=== PATIENT | female | born 1995 | race Caucasian/White ===

== ENCOUNTER 2019-01-04 09:58 | Inpatient (IN) | payer MEDICAID ==
[2019-01-04] MEDS ORDERED: Sodium Chloride 0.9% 10 ML Syringe FLUSH PRN (12:38)
[2019-01-04] MEDS ORDERED: Acetaminophen 325 MG Tab PO PRN (12:38)
[2019-01-04] MEDS ORDERED: Ondansetron 4 MG/2 ML SDV IV PRN (12:38)
[2019-01-04] MEDS ORDERED: Lidocaine 1% 50 ML MDV ONE (16:53)
--- NOTE | 2019-01-04 17:28 | PCM.LDHP ---
L&D History of Present Illness - General Date of Service: 01/04/19 Admit Problem/Dx: Patient Status Order with Admit Dx/Problem 01/04/19 12:38 Patient Status [ADT] Routine Admission Diagnosis/Problem Admission Diagnosis/Problem Source of Information: Patient History Limitations: Reports: No Limitations - Related Data Allergies/Adverse Reactions: Allergies Allergy/AdvReac Type Severity Reaction Status Date / Time amoxicillin [Amoxicillin] Allergy Cannot Verified 11/19/18 13:14 Remember cefaclor [Cefaclor] Allergy Rash Verified 11/19/18 13:14 Home Medications: Home Meds Vit 90/Iron Fum/Folic [ Formula] 1 each PO DAILY 08/21/13 [ History] Omeprazole 20 mg PO DAILY PRN 01/05/15 [History] Past Medical History - Past Health History Medical/Surgical History: Denies Medical/Surgical History [employer] History: Reports: Musculoskeletal History: Reports: Other (See Below) Other Musculoskeletal History: taylors bunion on left foot - Past Surgical History Musculoskeletal Surgical History: Reports: Other (See Below) Other Musculoskeletal Surgeries/Procedures:: taylors bunion repair left foot-[address] Social & Family History - Family History Family Medical History: Noncontributory - Tobacco Use Smoking Status *Q: Never Smoker - Caffeine Use Caffeine Use: Reports: None - Recreational Drug Use Recreational Drug Use: No H&P Review of Systems - Review of Systems: Review Of Systems: See Below General: Reports: No Symptoms HEENT: Reports: No Symptoms Pulmonary: Reports: No Symptoms Cardiovascular: Reports: No Symptoms Gastrointestinal: Reports: No Symptoms Genitourinary: Reports: No Symptoms Musculoskeletal: Reports: No Symptoms Skin: Reports: No Symptoms Psychiatric: Reports: No Symptoms Neurological: Reports: No Symptoms Hematologic/Lymphatic: Reports: No Symptoms Immunologic: Reports: No Symptoms L&D Exam - Exam Exam: See Below - Vital Signs Vital Signs: Last Vital Signs Temp 36.6 C 01/04/19 15:20 Pulse 96 01/04/19 15:22 Resp 16 01/04/19 15:20 BP 120/62 01/04/19 15:22 Pulse Ox 94 L 01/04/19 15:20 Weight: 69.4 kg - OB Specific Contraction Duration (sec): 50-120 Contraction Frequency (min): 1.5-3 Contraction Intensity: Moderate Movement: Active Heart Tones: Present Heart Rate (FHR) Variability: Moderate (6-25 bmp) Presentation: Vertex - Spence Score Spence Score Cervix Position: Anterior Spence Score Consistency: Soft Spence Score Effacement: >80% Spence Score Dilation: 3-4 cm Spence Score 's Station: -1 ,0 Spence Score Total: 11 - Exam General: Alert, Oriented HEENT: PERRLA, Conjunctiva Clear, EACs Clear, EOMI, Hearing Intact, Mucosa Moist & [place], Nares Patent, Normal Nasal Septum, Posterior Pharynx Clear, TMs Clear Neck: Supple, Trachea Midline Lungs: Clear to Auscultation, Normal Respiratory Effort Cardiovascular: Regular Rate, Regular Rhythm GI/Abdominal Exam: Normal Bowel Sounds, Soft, Non-Tender, No Organomegaly, No Distention, No Abnormal Bruit, No Mass, Pelvis Stable Rectal Exam: Normal Exam, Normal Rectal Tone Genitourinary: Normal external exam, Normal bimanual exam, Normal speculum exam Back Exam: Normal Inspection, Full Range of Motion Extremities: Normal Inspection, Normal Range of Motion, Non-Tender, No Pedal Edema, Normal Capillary Refill Skin: Warm, Dry, Intact Neurological: Cranial Nerves Intact, Reflexes Equal Bilateral Psychiatric: Alert, Normal Affect, Normal Mood - Patient Data Lab Results Last 24 hrs: Laboratory Results - last 24 hr 01/04/19 01/04/19 01/04/19 Range/Units 11:08 12:38 12:56 WBC 17.0 H (4.5-11.0) K/uL RBC 3.86 (3.30-5.50) M/uL Hgb 11.8 L (12.0-15.0) g/dL Hct 36.1 (36.0-48.0) % MCV 94 (80-98) fL MCH 31 (27-31) pg MCHC 33 (32-36) % Plt Count 192 (150-400) K/uL Neut % (Auto) 84 H (36-66) % Lymph % (Auto) 8 L (24-44) % [place] % (Auto) 7 H (2-6) % Eos % (Auto) 1 L (2-4) % Baso % (Auto) 0 (0-1) % Urine Color Yellow Urine Appearance Slightly cloudy Urine pH 7.0 (4.5-8.0) Ur Specific [place] 1.015 (1.008-1.030) Urine Protein Trace (NEGATIVE) mg/dL Urine Glucose (UA) Normal (NEGATIVE) mg/dL Urine Ketones Negative (NEGATIVE) mg/dL Urine Occult Blood Moderate (NEGATIVE) Urine Nitrite Negative (NEGATIVE) Urine Bilirubin Negative (NEGATIVE) Urine Urobilinogen Normal (NORMAL) mg/dL Ur Leukocyte Esterase Small (NEGATIVE) Urine RBC 5-10 H (0-5) Urine WBC 20-30 H (0-5) Ur Epithelial Cells Moderate Amorphous Sediment Not seen Urine Bacteria Many Urine Mucus Moderate Urine Opiates Screen Negative (NEGATIVE) Ur Oxycodone Screen Negative (NEGATIVE) Urine Methadone Screen Negative (NEGATIVE) Ur Propoxyphene Screen Negative (NEGATIVE) Ur Barbiturates Screen Negative (NEGATIVE) Ur Tricyclics Screen Negative (NEGATIVE) Ur Phencyclidine Scrn Negative (NEGATIVE) Ur Amphetamine Screen Negative (NEGATIVE) U Methamphetamines Scrn Negative (NEGATIVE) Urine MDMA Screen Negative (NEGATIVE) U Benzodiazepines Scrn Negative (NEGATIVE) U Cocaine Metab Screen Negative (NEGATIVE) U Marijuana (THC) Screen Negative (NEGATIVE) Result Diagrams: 01/04/19 12:56 - Problem List (1) SNOMED Code(s): 36037997 ICD Code: Z34.90 - ENCNTR FOR SUPRVSN OF NORMAL , UNSP, UNSP TRIMESTER Status: Acute Current Visit: Yes Qualifiers: Weeks of gestation: 39 weeks Qualified Code(s): Z3A.39 - 39 weeks gestation of (2) Labor established SNOMED Code(s): 59570936 ICD Code: OBA1451 - Status: Acute Current Visit: Yes Problem List Initiated/Reviewed/Updated: Yes Orders Last 24hrs: Active Orders 24 hr Category Date Time Status Patient Status [ADT] Routine ADT 01/04/19 12:38 Active Ambulate [RC] PER UNIT ROUTINE Care 01/04/19 12:38 Active Communication Order [RC] ASDIRECTED Care 01/04/19 12:38 Active Communication Order [RC] Per Unit Routine Care 01/04/19 16:22 Active Communication Order [RC] Per Unit Routine Care 01/04/19 16:22 Active Communication Order [RC] Per Unit Routine Care 01/04/19 16:22 Active Communication Order [RC] Per Unit Routine Care 01/04/19 16:22 Active Non Stress Test [RC] Click to Edit Care 01/04/19 12:38 Active May Shower [RC] ASDIRECTED Care 01/04/19 12:38 Active Nitrous Oxide Delivery [RC] ASDIRECTED Care 01/04/19 16:22 Active Notify Provider Vital Signs [RC] PRN Care 01/04/19 12:38 Active Notify Provider [RC] PRN Care 01/04/19 12:38 Active OB Check [OM.PC] Click to Edit Care 01/04/19 10:10 Ordered Oxygen Therapy [RC] ASDIRECTED Care 01/04/19 16:22 Active Pulse Oximetry [RC] ASDIRECTED Care 01/04/19 16:22 Active Up ad Jerrica [RC] ASDIRECTED Care 01/04/19 12:38 Active VTE/DVT Education [RC] Click to Edit Care 01/04/19 12:39 Active Verify Patient Consent Obtain [RC] ASDIRECTED Care 01/04/19 16:22 Active Vital Signs [RC] PER UNIT ROUTINE Care 01/04/19 12:38 Active Vital Signs [RC] PER UNIT ROUTINE Care 01/04/19 16:22 Active Regular Diet [DIET] Diet 01/04/19 Lunch Active Acetaminophen [Tylenol] Med 01/04/19 12:38 Active 650 mg PO Q4H PRN Ondansetron [Zofran] Med 01/04/19 12:38 Active 4 mg IV Q4H PRN Oxytocin/Normal Saline [Pitocin in NS 20 Units/1,000 ML Med 01/04/19 16:30 Active ] 20 unit in 1,000 ml IV TITRATE Sodium Chloride 0.9% [Saline Flush] Med 01/04/19 12:38 Active 10 ml FLUSH ASDIRECTED PRN DVT/VTE Prophylaxis Reflex [OM.PC] Routine Oth 01/04/19 12:38 Ordered Medication Discontinuation Instructions [OM.PC] Routine Oth 01/04/19 16:22 Ordered Saline Lock Insert [OM.PC] Routine Oth 01/04/19 12:38 Ordered Resuscitation Status Routine Resus Stat 01/04/19 12:38 Ordered Medication Orders Acetaminophen (Tylenol) 650 mg PO Q4H PRN PRN Reason: Pain (Mild 1-3) and fever Oxytocin/Sodium Chloride (Pitocin In Ns 20 Units/1,000 Ml) 20 unit in 1,000 mls @ 999 mls/hr IV TITRATE JENNIFER; Protocol Ondansetron HCl (Zofran) 4 mg IV Q4H PRN PRN Reason: Nausea/Vomiting Sodium Chloride (Saline Flush) 10 ml FLUSH ASDIRECTED PRN PRN Reason: Keep Vein Open Assessment/Plan Comment:: 01/04/2019 23 yo at 39 4/7 gestation weeks came in in active labor. She states that her contractions got more intense during the night and she has had bloody show. SVE-4-5/90/0 FHTs category one Contractions every 1.5-6 minutes Labs-O negative, Hep B neg, HIV neg, Hep C neg, RPR nonreactive, Rubella Immune , GBS negative Plan- Will admit patient Monitor labor Monitor FHTs intermittently Patient may be up ad jerrica Patient may tub bath or shower Patient may eat regular diet Pain management per patient request Plan and anticipate a vaginal delivery
[2019-01-04] MEDS ORDERED: Benzocaine 20% Top Spray 56 GM Bottle TOP PRN (17:30)
[2019-01-04] MEDS ORDERED: Witch Hazel Medicated Pads 100/Jar TOP PRN (17:30)
[2019-01-04] MEDS ORDERED: Lanolin 100% Cream 40 GM Tube TOP PRN (17:30)
[2019-01-04] MEDS ORDERED: Ibuprofen 200 MG Tab, 24 Tab Bulk Bottle PO PRN (17:32)
[2019-01-04] MEDS ORDERED: Acetaminophen 325 MG Tab, 50 Tab Bulk Bottle PO PRN (17:32)
--- NOTE | 2019-01-04 18:20 | PCM.DEL ---
L & D Note - General Info Date of Service: 01/04/19 - Delivery Note Labor: Spontaneous Delivery Outcome: Livebirth Delivery Method: Spontaneous Vaginal Delivery-Single Delivery Mode: Spontaneous Presentation: Left Occiput Anterior (ALEXEY) Nuchal Cord: None Anesthesia Type: Nitrous Oxide Episiotomy Type: None Laceration: None Placenta: Intact, Spontaneous Cord: 3 Vessels Estimated Blood Loss: 250 Resuscitation Needed: No [place]: Bulb Syringe, [place] Used, Warmer Used Provider: Mile Schmitt Score 1 min: 9 Score 5 min: 9 Second Stage Interventions: Reports: Encouragement Given, Pushing Effectively, Pushing, McRobert's Position Delivery Comments (Free Text/Narrative):: 01/04/2019 23 yo delivered a viable male infant at 1703 on 01/04/2019 over and intact perineum in the ALEXEY position. APGARS-9/9, weight-8lbs, length-20.75inches, infant was delivered, placed on prewarmed blanket on mother abdomen, dried, stimulated and cried spontaneously and began to pink in color. No nuchal cord noted, three vessel cord, cord then double clamped and cut by father of infant. Placenta came spontaneous and intact. EBL-250ml. No lacerations noted of vagina, perineum, rectum, or cervix. Infant now skin to skin on mother and both in stable condition in labor and delivery room. 1st [id number] 2nd [id number] 3rd [id number] - General Info Date of Service: 01/04/19 Functional Status: Reports: Pain Controlled - Review of Systems General: Reports: No Symptoms HEENT: Reports: No Symptoms Pulmonary: Reports: No Symptoms Cardiovascular: Reports: No Symptoms Gastrointestinal: Reports: No Symptoms Genitourinary: Reports: No Symptoms Musculoskeletal: Reports: No Symptoms Skin: Reports: No Symptoms Neurological: Reports: No Symptoms Psychiatric: Reports: No Symptoms - Patient Data Vitals - Most Recent: Last Vital Signs Temp 36.6 C 01/04/19 15:20 Pulse 96 01/04/19 15:22 Resp 16 01/04/19 15:20 BP 120/62 01/04/19 15:22 Pulse Ox 94 L 01/04/19 15:20 Weight - Most Recent: 69.4 kg Lab Results Last 24 Hours: Laboratory Results - last 24 hr 01/04/19 01/04/19 01/04/19 Range/Units 11:08 12:38 12:56 WBC 17.0 H (4.5-11.0) K/uL RBC 3.86 (3.30-5.50) M/uL Hgb 11.8 L (12.0-15.0) g/dL Hct 36.1 (36.0-48.0) % MCV 94 (80-98) fL MCH 31 (27-31) pg MCHC 33 (32-36) % Plt Count 192 (150-400) K/uL Neut % (Auto) 84 H (36-66) % Lymph % (Auto) 8 L (24-44) % [place] % (Auto) 7 H (2-6) % Eos % (Auto) 1 L (2-4) % Baso % (Auto) 0 (0-1) % Urine Color Yellow Urine Appearance Slightly cloudy Urine pH 7.0 (4.5-8.0) Ur Specific [place] 1.015 (1.008-1.030) Urine Protein Trace (NEGATIVE) mg/dL Urine Glucose (UA) Normal (NEGATIVE) mg/dL Urine Ketones Negative (NEGATIVE) mg/dL Urine Occult Blood Moderate (NEGATIVE) Urine Nitrite Negative (NEGATIVE) Urine Bilirubin Negative (NEGATIVE) Urine Urobilinogen Normal (NORMAL) mg/dL Ur Leukocyte Esterase Small (NEGATIVE) Urine RBC 5-10 H (0-5) Urine WBC 20-30 H (0-5) Ur Epithelial Cells Moderate Amorphous Sediment Not seen Urine Bacteria Many Urine Mucus Moderate Urine Opiates Screen Negative (NEGATIVE) Ur Oxycodone Screen Negative (NEGATIVE) Urine Methadone Screen Negative (NEGATIVE) Ur Propoxyphene Screen Negative (NEGATIVE) Ur Barbiturates Screen Negative (NEGATIVE) Ur Tricyclics Screen Negative (NEGATIVE) Ur Phencyclidine Scrn Negative (NEGATIVE) Ur Amphetamine Screen Negative (NEGATIVE) U Methamphetamines Scrn Negative (NEGATIVE) Urine MDMA Screen Negative (NEGATIVE) U Benzodiazepines Scrn Negative (NEGATIVE) U Cocaine Metab Screen Negative (NEGATIVE) U Marijuana (THC) Screen Negative (NEGATIVE) Med Orders - Current: Current Medications Acetaminophen (Tylenol) 650 mg PO Q4H PRN PRN Reason: Pain (Mild 1-3) and fever Acetaminophen (Tylenol Bulk Bottle) 325 - 650 mg PO Q4H PRN PRN Reason: Pain Benzocaine ([id number] 20% [place]) 0 gm TOP Q4H PRN PRN Reason: Perineal Comfort Measure Emollient Ointment (Lansinoh Hpa) 0 gm TOP ASDIRECTED PRN PRN Reason: Sore Nipples Oxytocin/Sodium Chloride (Pitocin In Ns 20 Units/1,000 Ml) 20 unit in 1,000 mls @ 999 mls/hr IV TITRATE JENNIFER; Protocol Ibuprofen (Motrin Bulk Bottle) 600 mg PO Q6H PRN PRN Reason: Pain Ondansetron HCl (Zofran) 4 mg IV Q4H PRN PRN Reason: Nausea/Vomiting Sodium Chloride (Saline Flush) 10 ml FLUSH ASDIRECTED PRN PRN Reason: Keep Vein Open Witch Stefanie (Tucks) 1 pad TOP ASDIRECTED PRN PRN Reason: Hemorrhoids Discontinued Medications Oxytocin/Sodium Chloride (Pitocin In Ns 20 Units/1,000 Ml) 20 unit in 1,000 mls @ 2,997 mls/hr IV ONETIME ONE; Protocol Stop: 01/04/19 17:52 Lidocaine HCl (Xylocaine 1%) Confirm Administered Dose 100 ml .ROUTE .K-MED ONE Stop: 01/04/19 16:54 - Exam General: Alert, Oriented, Cooperative HEENT: Pupils Equal, Pupils Reactive, EOMI, Mucous Membr. Moist/[place] Neck: Supple Lungs: Clear to Auscultation, Normal Respiratory Effort Cardiovascular: Regular Rate, Regular Rhythm GI/Abdominal Exam: Normal Bowel Sounds, Soft, Non-Tender, No Organomegaly, No Distention, No Abnormal Bruit, No Mass, Pelvis Stable (Female) Exam: Normal External Exam, Normal Bimanual Exam, Enlarged Uterus, Vaginal Bleeding Back Exam: Normal Inspection, Full Range of Motion Extremities: Normal Inspection, Normal Range of Motion, Non-Tender, No Pedal Edema, Normal Capillary Refill Skin: Warm, Dry, Intact Wound/Incisions: Healing Well Neurological: No New Focal Deficit Psy/Mental Status: Alert, Normal Affect, Normal Mood - Problem List & Annotations (1) SNOMED Code(s): 90884408 Code(s): Z34.90 - ENCNTR FOR SUPRVSN OF NORMAL , UNSP, UNSP TRIMESTER Status: Acute Current Visit: Yes Qualifiers: Weeks of gestation: 39 weeks Qualified Code(s): Z3A.39 - 39 weeks gestation of (2) Labor established SNOMED Code(s): 65432496 Code(s): DWU8345 - Status: Acute Current Visit: Yes (3) Vaginal delivery SNOMED Code(s): 279508009 Code(s): O80 - ENCOUNTER FOR FULL-TERM UNCOMPLICATED DELIVERY Status: Acute Current Visit: No - Problem List Review Problem List Initiated/Reviewed/Updated: Yes - My Orders Last 24 Hours: My Active Orders 01/04/19 12:38 Patient Status [ADT] Routine Ambulate [RC] PER UNIT ROUTINE Communication Order [RC] ASDIRECTED Non Stress Test [RC] Click to Edit May Shower [RC] ASDIRECTED Notify Provider Vital Signs [RC] PRN Notify Provider [RC] PRN Up ad Valentina [RC] ASDIRECTED Vital Signs [RC] PER UNIT ROUTINE Acetaminophen [Tylenol] 650 mg PO Q4H PRN Ondansetron [Zofran] 4 mg IV Q4H PRN Sodium Chloride 0.9% [Saline Flush] 10 ml FLUSH ASDIRECTED PRN DVT/VTE Prophylaxis Reflex [OM.PC] Routine Saline Lock Insert [OM.PC] Routine Resuscitation Status Routine 01/04/19 12:39 VTE/DVT Education [RC] Click to Edit 01/04/19 16:22 Communication Order [RC] Per Unit Routine Communication Order [RC] Per Unit Routine Communication Order [RC] Per Unit Routine Communication Order [RC] Per Unit Routine Nitrous Oxide Delivery [RC] ASDIRECTED Oxygen Therapy [RC] ASDIRECTED Pulse Oximetry [RC] ASDIRECTED Verify Patient Consent Obtain [RC] ASDIRECTED Vital Signs [RC] PER UNIT ROUTINE Medication Discontinuation Instructions [OM.PC] Routine 01/04/19 16:30 Oxytocin/Normal Saline [Pitocin in NS 20 Units/1,000 ML] 20 unit in 1,000 ml IV TITRATE 01/04/19 17:30 Patient Status [ADT] Routine Vital Signs [RC] PFP Benzocaine [Tuub-G-Onbhavd 20% [place]] See Dose Instructions TOP Q4H PRN Lanolin [Lansinoh HPA] 0 gm TOP ASDIRECTED PRN Witch Stefanie [Tucks] 1 pad TOP ASDIRECTED PRN Assess Lochia [WOMSER] Per Unit Routine Assess Uterine Involution [WOMSER] Per Unit Routine 01/04/19 17:32 Acetaminophen [Tylenol Bulk Bottle] 325 - 650 mg PO Q4H PRN Ibuprofen [Motrin Bulk Bottle] 600 mg PO Q6H PRN 01/04/19 Lunch Regular Diet [DIET] 01/05/19 06:00 CBC WITH AUTO DIFF [HEME] Routine - Assessment Assessment:: 01/04/2019 without complications - Plan Plan:: 01/04/2019 23 yo at 39 4/7 gestation weeks came in in active labor. She states that her contractions got more intense during the night and she has had bloody show. SVE-4-5/0 FHTs category one Contractions every 1.5-6 minutes Labs-O negative, Hep B neg, HIV neg, Hep C neg, RPR nonreactive, Rubella Immune , GBS negative Plan- Will admit patient Monitor labor Monitor FHTs intermittently Patient may be up ad valentina Patient may tub bath or shower Patient may eat regular diet Pain management per patient request Plan and anticipate a vaginal delivery 01/04/2019 Routine cares Encourage and support Plan discharge in 24-48 hours
[2019-01-05 07:59] VITALS: BP 108/66
--- NOTE | 2019-01-05 08:34 | PCM.PNPP ---
- General Info Date of Service: 01/05/19 Functional Status: Reports: Pain Controlled - Review of Systems General: Reports: No Symptoms HEENT: Reports: No Symptoms Pulmonary: Reports: No Symptoms Cardiovascular: Reports: No Symptoms Gastrointestinal: Reports: No Symptoms Genitourinary: Reports: No Symptoms Musculoskeletal: Reports: No Symptoms Skin: Reports: No Symptoms Neurological: Reports: No Symptoms Psychiatric: Reports: No Symptoms - General Info Date of Service: 01/05/19 - Patient Data Vital Signs - Most Recent: Last Vital Signs Temp 35.9 C 01/05/19 07:30 Pulse 93 01/05/19 07:30 Resp 16 01/05/19 07:30 BP 108/66 01/05/19 07:30 Pulse Ox 98 01/05/19 07:30 Weight - Most Recent: 69.4 kg I&O - Last 24 Hours: Intake & Output 01/04/19 01/05/19 01/05/19 22:59 06:59 14:59 Intake Total 2021 Balance 2021 Lab Results - Last 24 Hours: Laboratory Results - last 24 hr 01/04/19 01/04/19 01/04/19 Range/Units 11:08 12:38 12:56 WBC 17.0 H (4.5-11.0) K/uL RBC 3.86 (3.30-5.50) M/uL Hgb 11.8 L (12.0-15.0) g/dL Hct 36.1 (36.0-48.0) % MCV 94 (80-98) fL MCH 31 (27-31) pg MCHC 33 (32-36) % Plt Count 192 (150-400) K/uL Neut % (Auto) 84 H (36-66) % Lymph % (Auto) 8 L (24-44) % Potter % (Auto) 7 H (2-6) % Eos % (Auto) 1 L (2-4) % Baso % (Auto) 0 (0-1) % Urine Color Yellow Urine Appearance Slightly cloudy Urine pH 7.0 (4.5-8.0) Ur Specific [place] 1.015 (1.008-1.030) Urine Protein Trace (NEGATIVE) mg/dL Urine Glucose (UA) Normal (NEGATIVE) mg/dL Urine Ketones Negative (NEGATIVE) mg/dL Urine Occult Blood Moderate (NEGATIVE) Urine Nitrite Negative (NEGATIVE) Urine Bilirubin Negative (NEGATIVE) Urine Urobilinogen Normal (NORMAL) mg/dL Ur Leukocyte Esterase Small (NEGATIVE) Urine RBC 5-10 H (0-5) Urine WBC 20-30 H (0-5) Ur Epithelial Cells Moderate Amorphous Sediment Not seen Urine Bacteria Many Urine Mucus Moderate Urine Opiates Screen Negative (NEGATIVE) Ur Oxycodone Screen Negative (NEGATIVE) Urine Methadone Screen Negative (NEGATIVE) Ur Propoxyphene Screen Negative (NEGATIVE) Ur Barbiturates Screen Negative (NEGATIVE) Ur Tricyclics Screen Negative (NEGATIVE) Ur Phencyclidine Scrn Negative (NEGATIVE) Ur Amphetamine Screen Negative (NEGATIVE) U Methamphetamines Scrn Negative (NEGATIVE) Urine MDMA Screen Negative (NEGATIVE) U Benzodiazepines Scrn Negative (NEGATIVE) U Cocaine Metab Screen Negative (NEGATIVE) U Marijuana (THC) Screen Negative (NEGATIVE) Blood Type Gel Antibody Screen Rhogam Indicated 01/04/19 01/05/19 Range/Units 20:21 04:42 WBC 17.4 H (4.5-11.0) K/uL RBC 3.69 (3.30-5.50) M/uL Hgb 11.3 L (12.0-15.0) g/dL Hct 34.4 L (36.0-48.0) % MCV 93 (80-98) fL MCH 31 (27-31) pg MCHC 33 (32-36) % Plt Count 184 (150-400) K/uL Neut % (Auto) 75 H (36-66) % Lymph % (Auto) 15 L (24-44) % Potter % (Auto) 9 H (2-6) % Eos % (Auto) 2 (2-4) % Baso % (Auto) 0 (0-1) % Urine Color Urine Appearance Urine pH (4.5-8.0) Ur Specific [place] (1.008-1.030) Urine Protein (NEGATIVE) mg/dL Urine Glucose (UA) (NEGATIVE) mg/dL Urine Ketones (NEGATIVE) mg/dL Urine Occult Blood (NEGATIVE) Urine Nitrite (NEGATIVE) Urine Bilirubin (NEGATIVE) Urine Urobilinogen (NORMAL) mg/dL Ur Leukocyte Esterase (NEGATIVE) Urine RBC (0-5) Urine WBC (0-5) Ur Epithelial Cells Amorphous Sediment Urine Bacteria Urine Mucus Urine Opiates Screen (NEGATIVE) Ur Oxycodone Screen (NEGATIVE) Urine Methadone Screen (NEGATIVE) Ur Propoxyphene Screen (NEGATIVE) Ur Barbiturates Screen (NEGATIVE) Ur Tricyclics Screen (NEGATIVE) Ur Phencyclidine Scrn (NEGATIVE) Ur Amphetamine Screen (NEGATIVE) U Methamphetamines Scrn (NEGATIVE) Urine MDMA Screen (NEGATIVE) U Benzodiazepines Scrn (NEGATIVE) U Cocaine Metab Screen (NEGATIVE) U Marijuana (THC) Screen (NEGATIVE) Blood Type O NEGATIVE Gel Antibody Screen Positive A* Rhogam Indicated Yes, baby rh pos Med Orders - Current: Current Medications Acetaminophen (Tylenol) 650 mg PO Q4H PRN PRN Reason: Pain (Mild 1-3) and fever Acetaminophen (Tylenol Bulk Bottle) 325 - 650 mg PO Q4H PRN PRN Reason: Pain Last Admin: 01/04/19 22:19 Dose: 650 mg Benzocaine (Kiiu-Z-Xrifusw 20% [place]) 0 gm TOP Q4H PRN PRN Reason: Perineal Comfort Measure Emollient Ointment (Lansinoh Hpa) 0 gm TOP ASDIRECTED PRN PRN Reason: Sore Nipples Oxytocin/Sodium Chloride (Pitocin In Ns 20 Units/1,000 Ml) 20 unit in 1,000 mls @ 999 mls/hr IV TITRATE JENNIFER; Protocol Ibuprofen (Motrin Bulk Bottle) 600 mg PO Q6H PRN PRN Reason: Pain Last Admin: 01/04/19 20:06 Dose: 600 mg Ondansetron HCl (Zofran) 4 mg IV Q4H PRN PRN Reason: Nausea/Vomiting Sodium Chloride (Saline Flush) 10 ml FLUSH ASDIRECTED PRN PRN Reason: Keep Vein Open Witpadmini Watts (Tucks) 1 pad TOP ASDIRECTED PRN PRN Reason: Hemorrhoids Discontinued Medications Oxytocin/Sodium Chloride (Pitocin In Ns 20 Units/1,000 Ml) 20 unit in 1,000 mls @ 2,997 mls/hr IV ONETIME ONE; Protocol Stop: 01/04/19 17:52 Last Admin: 01/04/19 17:15 Dose: 999 munits/min, 2,997 mls/hr Lidocaine HCl (Xylocaine 1%) Confirm Administered Dose 100 ml .ROUTE .STK-MED ONE Stop: 01/04/19 16:54 Last Admin: 01/04/19 21:20 Dose: Not Given - Infant Interaction Infant Disposition, : at Bedside Infant Interaction: Holding Feeding: Breastfed Infant; Nursed Well Support Person: - Recovery Exam Fundal Tone: Firm Fundal Level: 1 Fingerbreadths Below Umbilicus Fundal Placement: Midline Lochia Amount: Moderate Lochia Color: Rubra/Red Perineum Description: Intact, Minimal Bruising/Swelling Episiotomy/Laceration: None Bladder Status: Voiding - Exam General: Alert, Oriented HEENT: Pupils Equal Neck: Supple Lungs: Clear to Auscultation, Normal Respiratory Effort Cardiovascular: Regular Rate, Regular Rhythm GI/Abdominal Exam: Normal Bowel Sounds, Soft, Non-Tender, No Organomegaly, No Distention, No Abnormal Bruit, No Mass, Pelvis Stable Extremities: Normal Inspection, Normal Range of Motion, Non-Tender, No Pedal Edema, Normal Capillary Refill Skin: Warm, Dry, Intact Neurological: No New Focal Deficit Psy/Mental Status: Alert, Normal Affect, Normal Mood - Problem List & Annotations (1) SNOMED Code(s): 36319253 Code(s): Z34.90 - ENCNTR FOR SUPRVSN OF NORMAL , UNSP, UNSP TRIMESTER Status: Acute Current Visit: Yes Qualifiers: Weeks of gestation: 39 weeks Qualified Code(s): Z3A.39 - 39 weeks gestation of (2) Labor established SNOMED Code(s): 57442181 Code(s): LEX8257 - Status: Acute Current Visit: Yes (3) Vaginal delivery SNOMED Code(s): 024031340 Code(s): O80 - ENCOUNTER FOR FULL-TERM UNCOMPLICATED DELIVERY Status: Acute Current Visit: No - Problem List Review Problem List Initiated/Reviewed/Updated: Yes - My Orders Last 24 Hours: My Active Orders 01/04/19 12:38 Patient Status [ADT] Routine Ambulate [RC] PER UNIT ROUTINE May Shower [RC] ASDIRECTED Notify Provider Vital Signs [RC] PRN Notify Provider [RC] PRN Up ad Valentina [RC] ASDIRECTED Vital Signs [RC] PER UNIT ROUTINE Acetaminophen [Tylenol] 650 mg PO Q4H PRN Ondansetron [Zofran] 4 mg IV Q4H PRN Sodium Chloride 0.9% [Saline Flush] 10 ml FLUSH ASDIRECTED PRN DVT/VTE Prophylaxis Reflex [OM.PC] Routine Saline Lock Insert [OM.PC] Routine Resuscitation Status Routine 01/04/19 12:39 VTE/DVT Education [RC] Click to Edit 01/04/19 16:22 Oxygen Therapy [RC] ASDIRECTED Vital Signs [RC] PER UNIT ROUTINE Medication Discontinuation Instructions [OM.PC] Routine 01/04/19 16:30 Oxytocin/Normal Saline [Pitocin in NS 20 Units/1,000 ML] 20 unit in 1,000 ml IV TITRATE 01/04/19 17:30 Patient Status [ADT] Routine Vital Signs [RC] PFP Benzocaine [Gbdf-S-Snbtjdz 20% [place]] See Dose Instructions TOP Q4H PRN Lanolin [Lansinoh HPA] 0 gm TOP ASDIRECTED PRN Witch Stefanie [Tucks] 1 pad TOP ASDIRECTED PRN Assess Lochia [WOMSER] Per Unit Routine Assess Uterine Involution [WOMSER] Per Unit Routine 01/04/19 17:32 Acetaminophen [Tylenol Bulk Bottle] 325 - 650 mg PO Q4H PRN Ibuprofen [Motrin Bulk Bottle] 600 mg PO Q6H PRN 01/04/19 20:21 ANTIBODY IDENTIFICATION [BBK] Routine SCREEN [BBK] Routine RHOGAM, [RHIG WORKUP, ] [BBK] Routine 01/04/19 Lunch Regular Diet [DIET] - Assessment Assessment:: 01/04/2019 without complications 01/05/2019 without complications day one well Bonding well and happy with Discharge home after 24 hrs post delivery - Plan Plan:: 01/04/2019 23 yo at 39 4/7 gestation weeks came in in active labor. She states that her contractions got more intense during the night and she has had bloody show. SVE-4-5/90/0 FHTs category one Contractions every 1.5-6 minutes Labs-O negative, Hep B neg, HIV neg, Hep C neg, RPR nonreactive, Rubella Immune , GBS negative Plan- Will admit patient Monitor labor Monitor FHTs intermittently Patient may be up ad valentina Patient may tub bath or shower Patient may eat regular diet Pain management per patient request Plan and anticipate a vaginal delivery 01/04/2019 Routine cares Encourage and support Plan discharge in 24-48 hours 01/05/2019 Continue routine cares Continue to encourage and support Plan discharge at 24 hrs To see me in six weeks for visit
== END 2019-01-05 18:45 | disposition home or self-care (01) | DRG 807 ==
LOC: JP.OBCHECK 09:58 → JP.OB 12:37 → OBSVTOIN 17:03 → JP.MS 17:15
PROVIDERS: ADMIT Advanced Practice Midwife; ATTEND Advanced Practice Midwife
PROC: 10E0XZZ Delivery of Products of Conception, External Approach (ICD-10-PCS; principal; 2019-01-04)
DX: O80 Encounter for full-term uncomplicated delivery (principal); Z37.0 Single live birth; Z3A.39 39 weeks gestation of pregnancy; Z88.1 Allergy status to other antibiotic agents
CPT/HCPCS: 36415; 36430; 59409; 80305-QW; 81001; 85025; 85460; 86850; 86870; 86900; 86901; 99211; A9270-GY; J2590; J2790

== ENCOUNTER 2019-11-29 07:29 | Day surgery (SDC) | payer MEDICAID ==
[~2019-11-29 07:29] MED LIST: Bupivacaine 0.5% 50 ML MDV ONE; Lidocaine 1% with EPINEPHrine 1:100,000 50 ML MDV ONE; Midazolam 1 MG/ML 2 ML SDV ONE; Propofol 200 MG/20 ML SDV ONE; fentaNYL 100 MCG/2 ML SDV ONE
[2019-11-29] MEDS ORDERED: Acetaminophen 500 MG Tab PO ONE (07:45)
[2019-11-29] MEDS ORDERED: Clindamycin Phosphate 900 MG in Sodium Chloride 0.9% 100 ML IV ONE (08:00)
[2019-11-29] MEDS ORDERED: Dextrose 5%-Lactated Ringers 1,000 ML IV SCH (08:00)
[2019-11-29 10:10] VITALS: BP 99/54; PULSE 74
--- NOTE | 2019-12-12 14:21 | OR ---
DATE OF PROCEDURE: 11/29/2019 SURGEON: Tushar Sullivan MD PREOPERATIVE DIAGNOSIS: Probable lipoma of left thigh. POSTOPERATIVE DIAGNOSIS: Subfascial lipoma of left thigh. OPERATIVE PROCEDURE: Excision of subfascial lipoma of left thigh (84125). ANESTHESIA: Local. INDICATIONS FOR PROCEDURE: This is a 24-year-old presenting with an enlarging soft tissue mass in the medial left thigh. This clinically is probably a lipoma. The patient had a positive test this morning which was new information for her, and given this, we elected to proceed with excision of this with local only avoiding any IV sedation. The potential risks of procedure including bleeding, infection, and local recurrence of lesion were all reviewed, and the patient wishes to proceed. DETAILS OF PROCEDURE: The patient was taken to the operating room and placed in a supine position. With the left leg positioned in a frog-leg position, the medial left thigh was then prepped and draped. A linear incision over the lesion was then made and carried down through the skin and subcutaneous tissue. The plane of lesion appeared to be below the superficial fascia. As the superficial fascia was incised, a roughly 2 cm lipoma was excised. Some additional fat around it was also excised to provide a more clear margin. This was done with a blunt long dissection along with electrocautery. Following removal of lesion, inspection showed adequate hemostasis at that point, and the fascia was closed with a 3-0 Vicryl stitch, the subcutaneous tissue with 4-0 Vicryl stitch, and the skin with a 5-0 Prolene skin stitch. Dressing was applied. The patient was taken to the recovery room in satisfactory condition. There were no evident complications. Tushar Sullivan MD /[id number]
== END 2019-11-29 10:20 | disposition home or self-care (01) ==
LOC: JP.SDS 07:29
PROVIDERS: ATTEND Surgery
DX: D17.24 Benign lipomatous neoplasm of skin and subcutaneous tissue of left leg (principal)
CPT/HCPCS: 27328; 81025; 88304; A9270; J3490; J2250; J2704; J3010

== ENCOUNTER 2020-04-25 19:02 | Emergency (ER) | payer MEDICAID ==
[2020-04-25 19:11] VITALS: BP 124/76; PULSE 76
--- NOTE | 2020-04-25 19:25 | EDM.PDOC ---
ED HPI GENERAL MEDICAL PROBLEM - General Chief Complaint: Laceration Stated Complaint: CUT FINGER Time Seen by Provider: 04/25/20 19:16 Source of Information: Reports: Patient History Limitations: Reports: No Limitations - History of Present Illness Onset: Today Onset Date: 04/25/20 Onset Time: 18:00 Location: Reports: Upper Extremity, Left Quality: Reports: Sharp Left Finger-Index Pain Score (Numeric/FACES): 3 - Related Data Allergies Allergy/AdvReac Type Severity Reaction Status Date / Time amoxicillin [Amoxicillin] Allergy Cannot Verified 11/19/18 13:14 Remember cefaclor [Cefaclor] Allergy Rash Verified 11/19/18 13:14 Home Meds: Home Meds No122/Iron/Folic Acid [ Multi Tablet] 1 tab PO DAILY 04/25/20 [History] Past Medical History - Past Health History Medical/Surgical History: Denies Medical/Surgical History Genitourinary History: Reports: 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: Musculoskeletal History: Reports: Other (See Below) Other Musculoskeletal History: taylors bunion on left foot Neurological History: Reports: Concussion, Headaches, Chronic, Migraines - Past Surgical History Female Surgical History: Reports: None Neurological Surgical History: Reports: None Musculoskeletal Surgical History: Reports: Other (See Below) Other Musculoskeletal Surgeries/Procedures:: taylors bunion repair left foot-[address] Dermatological Surgical History: Reports: None Social & Family History - Family History Family Medical History: Noncontributory - Tobacco Use Smoking Status *Q: Never Smoker - Caffeine Use Caffeine Use: Reports: Soda ED ROS GENERAL - Review of Systems Review Of Systems: See Below Constitutional: Denies: Fever Respiratory: Reports: No Symptoms Cardiovascular: Reports: No Symptoms GI/Abdominal: Reports: No Symptoms. Denies: Nausea, Vomiting Musculoskeletal: Reports: Other (L index finger pain) Skin: Reports: No Symptoms ED EXAM, SKIN/RASH Exam: See Below Exam Limited By: No Limitations General Appearance: Alert, WD/WN Throat/Mouth: Normal Inspection Head: Atraumatic Respiratory/Chest: No Respiratory Distress Cardiovascular: Normal Peripheral Pulses Extremities: Other (1.5 severe laceration on the dorsum of the left second finger proximal interphalangeal joint) Neurological: Alert, Oriented ED SKIN PROCEDURES - Laceration/Wound Repair Digit - 2nd (Index) Appearance: Subcutaneous Distal NVT: Neuro & Vascular Intact, No Tendon Injury Anesthetic Type: Local Local Anesthesia - Lidocaine (Xylocaine): 1% Plain Local Anesthetic Volume: 2cc Skin Prep: Chlorhexidine (Hibiciens) Exploration/Debridement/Repair: Wound Explored, No Foreign Material Found Closed with: Sutures Lac/Wound length In cm: 1.5 Suture Size: 4-0 # of Sutures: 3 Suture Type: Prolene, Interrupted, Simple Sterile Dressing Applied: Nurse Tetanus Status Addressed: Yes Complications: No Course - Vital Signs Last Recorded V/S: Last Vital Signs Temp 36.3 C 04/25/20 19:16 Pulse 76 04/25/20 19:16 Resp 14 04/25/20 19:16 BP 124/76 04/25/20 19:16 Pulse Ox 98 04/25/20 19:16 - Orders/Labs/Meds Meds: Medications Discontinued Medications Generic Name Dose Route Start Last Admin Trade Name Dada PRN Reason Stop Dose Admin Lidocaine HCl 5 ml 04/25/20 19:23 04/25/20 19:45 Xylocaine-Mpf 1% INJECT 04/25/20 19:24 5 ml ONETIME ONE Administration Departure - Departure Time of Disposition: 19:52 Disposition: Home, Self-Care 01 Clinical Impression: Finger laceration Qualifiers: Encounter type: initial encounter Finger: index finger Damage to nail status: without damage Foreign body presence: without foreign body Laterality: left Qualified Code(s): S61.211A - Laceration without foreign body of left index finger without damage to nail, initial encounter - Discharge Information Instructions: Laceration Care, Adult Referrals: PCP,None [Primary Care Provider] - Forms: ED Department Discharge Additional Instructions: Deep wound clean dry and covered. Don't bend the finger for the next 3 days. Sutures out in one week. Sepsis Event Note (ED) - Evaluation Sepsis Screening Result: No Definite Risk - Focused Exam Vital Signs: Vital Signs Temp Pulse Resp BP Pulse Ox 04/25/20 19:16 36.3 C 76 14 124/76 98 04/25/20 19:10 36.3 C 76 14 124/76 98
== END 2020-04-25 20:00 | disposition home or self-care (01) ==
LOC: JP.ED 19:02
DX: S61.211A Laceration without foreign body of left index finger without damage to nail, initial encounter (principal); Z88.1 Allergy status to other antibiotic agents; W26.8XXA Contact with other sharp object(s), not elsewhere classified, initial encounter
CPT/HCPCS: 12001; 99282; J2001

== ENCOUNTER 2020-07-25 04:11 | Inpatient (IN) | payer MEDICAID ==
[2020-07-25] MEDS ORDERED: Misoprostol 200 MCG Tab RECTAL ONE (04:54)
[2020-07-25] MEDS ORDERED: Methylergonovine 0.2 MG/1 ML Amp IM ONE (04:54)
[2020-07-25] MEDS ORDERED: Sodium Chloride 0.9% 10 ML Syringe FLUSH PRN (04:54)
--- NOTE | 2020-07-25 04:54 | PCM.LDHP ---
L&D History of Present Illness - General Date of Service: 07/25/20 Admit Problem/Dx: Admission Diagnosis/Problem Admission Diagnosis/Problem Source of Information: Patient History Limitations: Reports: No Limitations - History of Present Illness Introduction:: 07/25/20 here in active labor. First contractions started around 2330 07/24/20. She fell asleep for two hours and woke up in active labor. Her membranes are intact. She has had an uncomplicated . She is rubella immune, HIV/hep B/C/RPR all non reactive. She is GBS negative. is here with her. 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 (Approximate): Musculoskeletal History: Reports: Other (See Below) Other Musculoskeletal History: taylors bunion on left foot Neurological History: Reports: Concussion, Headaches, Chronic, Migraines - Past Surgical History Female Surgical History: Reports: None Neurological Surgical History: Reports: None Musculoskeletal Surgical History: Reports: Other (See Below) Other Musculoskeletal Surgeries/Procedures:: taylors bunion repair left foot-[address] Dermatological Surgical History: Reports: None Social & Family History - Family History Family Medical History: Noncontributory - Caffeine Use Caffeine Use: Reports: Soda H&P Review of Systems - Review of Systems: Review Of Systems: See Below General: Reports: No Symptoms HEENT: Reports: No Symptoms Pulmonary: Reports: No Symptoms Cardiovascular: Reports: No Symptoms Gastrointestinal: Reports: No Symptoms Genitourinary: Reports: No Symptoms Musculoskeletal: Reports: No Symptoms Skin: Reports: No Symptoms Psychiatric: Reports: No Symptoms Neurological: Reports: No Symptoms Hematologic/Lymphatic: Reports: No Symptoms Immunologic: Reports: No Symptoms L&D Exam - Exam Exam: See Below - Vital Signs Vital Signs: Last Vital Signs Temp 37.1 C 07/25/20 04:32 Pulse 98 07/25/20 04:32 Resp 18 07/25/20 04:32 BP 99/82 07/25/20 04:32 Pulse Ox 95 07/25/20 04:32 - OB Specific Contraction Intensity: Moderate to Strong Movement: Active Heart Tones: Present Heart Rate (FHR) Variability: Moderate (6-25 bmp) Presentation: Vertex - Exam General: Alert, Oriented HEENT: PERRLA, Hearing Intact, Mucosa Moist & [place], Posterior Pharynx Clear, Pupils Equal, Pupils Reactive Neck: Supple, Trachea Midline Lungs: Clear to Auscultation, Normal Respiratory Effort Cardiovascular: Regular Rate, Regular Rhythm GI/Abdominal Exam: Normal Bowel Sounds, Soft Genitourinary: Normal external exam, Cervical dilitation Back Exam: Normal Inspection, Full Range of Motion Extremities: Normal Inspection, Normal Range of Motion, Non-Tender, No Pedal Edema Skin: Warm, Dry, Intact Neurological: Cranial Nerves Intact, Reflexes Equal Bilateral Psychiatric: Alert, Normal Affect, Normal Mood - Problem List (1) Active labor at term SNOMED Code(s): 66454279 ICD Code: [id number] - Status: Acute Current Visit: Yes Problem List Initiated/Reviewed/Updated: Yes Orders Last 24hrs: Active Orders 24 hr Category Date Time Status OB Check [OM.PC] Click to Edit Care 07/25/20 04:13 Ordered URINALYSIS W/MICROSCOPIC [UA W/MICROSCOPIC] [URIN] Lab 07/25/20 04:14 Ordered Routine Assessment/Plan Comment:: 07/25/20 Assessment: 25 yo here in active labor SVE last was 6-7 cm Plans no pain medication Anti E antibody, O negative blood type Uncomplicated Plan: Anticipate Type and screen
--- NOTE | 2020-07-25 05:46 | PCM.DEL ---
L & D Note - General Info Date of Service: 07/25/20 Mother's Due Date: 07/24/20 - Delivery Note Labor: Spontaneous Delivery Outcome: Livebirth Infant Delivery Method: Spontaneous Vaginal Delivery-Single Delivery Mode: Spontaneous Presentation: Right Occiput Anterior (JAYSHREE) Nuchal Cord: None Anesthesia Type: None Amniotic Fluid Description: Clear Episiotomy Type: None Laceration: None Placenta: Intact, Spontaneous Cord: 3 Vessels Estimated Blood Loss: 100 Resuscitation Needed: No Mongo: Stimulated Score 1 min: 9 Score 5 min: 9 Second Stage Interventions: Reports: Encouragement Given, Pushing Effectively, Pushing Involuntarily, Pushing, Pulls Own Legs Back Delivery Comments (Free Text/Narrative):: 07/25/20 25 yo G4 now P4 with spontaneous term labor at 40 1/7 weeks delivered a viable female . Patient labored wonderfully with no medications. AROM done at 0458 with clear fluid per patients request. Baby delivered in JAYSHREE position with no nuchal cord at 0516. Baby was placed on mothers chest and was crying spontaneously. Delayed cord clamping was completed for 90 seconds. Placenta delivered at 0523 spontaneously, intact, and with a 3 vessel cord. There was very scant blood at delivery. EBL 100 ml at most. Perineum, cervix, and vagina all intact. Apgars 8, 9. Stages of labor: 1: 2706-5269 2: 6336-6363 3: 4488-2282 - General Info Date of Service: 07/25/20 Functional Status: Reports: Pain Controlled - Review of Systems General: Reports: No Symptoms HEENT: Reports: No Symptoms Pulmonary: Reports: No Symptoms Cardiovascular: Reports: No Symptoms Gastrointestinal: Reports: No Symptoms Genitourinary: Reports: No Symptoms Musculoskeletal: Reports: No Symptoms Skin: Reports: No Symptoms Neurological: Reports: No Symptoms Psychiatric: Reports: No Symptoms - Patient Data Vitals - Most Recent: Last Vital Signs Temp 37.1 C 07/25/20 04:32 Pulse 98 07/25/20 04:32 Resp 18 07/25/20 04:32 BP 99/82 07/25/20 04:32 Pulse Ox 95 07/25/20 04:32 Lab Results Last 24 Hours: Laboratory Results - last 24 hr 07/25/20 07/25/20 Range/Units 04:14 05:10 WBC 14.8 H (4.5-11.0) K/uL RBC 4.16 (3.30-5.50) M/uL Hgb 11.8 L (12.0-15.0) g/dL Hct 35.8 L (36.0-48.0) % MCV 86 (80-98) fL MCH 28 (27-31) pg MCHC 33 (32-36) % Plt Count 233 (150-400) K/uL Neut % (Auto) 65 (36-66) % Lymph % (Auto) 22 L (24-44) % [place] % (Auto) 8 H (2-6) % Eos % (Auto) 5 H (2-4) % Baso % (Auto) 0 (0-1) % Urine Color Yellow (YELLOW) Urine Appearance Slightly cloudy A (CLEAR) Urine pH 7.0 (5.0-8.0) Ur Specific [place] >= 1.030 (1.008-1.030) Urine Protein Negative (NEGATIVE) mg/dL Urine Glucose (UA) Negative (NEGATIVE) mg/dL Urine Ketones Negative (NEGATIVE) mg/dL Urine Occult Blood Moderate H (NEGATIVE) Urine Nitrite Negative (NEGATIVE) Urine Bilirubin Negative (NEGATIVE) Urine Urobilinogen 0.2 (0.2-1.0) EU/dL Ur Leukocyte Esterase Negative (NEGATIVE) Urine RBC 5-10 H (0-5) Urine WBC 0-5 (0-5) Ur Epithelial Cells Many Amorphous Sediment Not seen Urine Bacteria Moderate Urine Mucus Few Med Orders - Current: Current Medications Oxytocin/Sodium Chloride (Pitocin In Ns 20 Units/1,000 Ml) 20 unit in 1,000 mls @ 2,997 mls/hr IV ASDIRECTED JENNIFER; Protocol Sodium Chloride (Saline Flush) 10 ml FLUSH ASDIRECTED PRN PRN Reason: Keep Vein Open Discontinued Medications Oxytocin/Sodium Chloride (Pitocin In Ns 20 Units/1,000 Ml) Confirm Administered Dose 20 unit in 1,000 mls @ as directed .ROUTE .STK-MED ONE Stop: 07/25/20 04:22 Methylergonovine Maleate (Methergine) 0.2 mg IM ONETIME ONE Stop: 07/25/20 04:55 Misoprostol (Cytotec) 800 mcg RECTAL ONETIME ONE Stop: 07/25/20 04:55 - Exam General: Alert, Oriented HEENT: Pupils Equal, Pupils Reactive, Mucous Membr. Moist/[place] Neck: Supple Lungs: Clear to Auscultation, Normal Respiratory Effort Cardiovascular: Regular Rate, Regular Rhythm GI/Abdominal Exam: Normal Bowel Sounds, Soft, Non-Tender, No Mass, Pelvis Stable (Female) Exam: Normal External Exam, Normal Bimanual Exam, Cervical Dilatation, Enlarged Uterus, Vaginal Bleeding. No: Vaginal Lesions, Vaginal Tears Back Exam: Normal Inspection, Full Range of Motion Extremities: Normal Inspection, Normal Range of Motion, Non-Tender, No Pedal Edema, Normal Capillary Refill Skin: Warm, Dry, Intact Wound/Incisions: Healing Well Neurological: No New Focal Deficit Psy/Mental Status: Alert, Normal Affect, Normal Mood - Problem List & Annotations (1) Active labor at term SNOMED Code(s): 79612280 Code(s): XKF2630 - Status: Acute Current Visit: Yes (2) Normal vaginal delivery SNOMED Code(s): 32190753, 318962434 Code(s): O80 - ENCOUNTER FOR FULL-TERM UNCOMPLICATED DELIVERY Status: Acute Current Visit: Yes (3) started SNOMED Code(s): 467794209 Code(s): UWO1368 - Status: Acute Current Visit: Yes - Problem List Review Problem List Initiated/Reviewed/Updated: Yes - My Orders Last 24 Hours: My Active Orders 07/25/20 04:13 OB Check [OM.PC] Click to Edit 07/25/20 04:54 Patient Status [ADT] Routine Communication Order [RC] ASDIRECTED Heart Tones [RC] PER UNIT ROUTINE Notify Provider [RC] PRN Up ad Jerrica [RC] ASDIRECTED Vital Signs [RC] PER UNIT ROUTINE TYPE AND SCREEN [BBK] Stat Sodium Chloride 0.9% [Saline Flush] 10 ml FLUSH ASDIRECTED PRN DVT/VTE Prophylaxis Reflex [OM.PC] Routine Saline Lock Insert [OM.PC] Routine Resuscitation Status Routine 07/25/20 04:55 Notify Provider Vital Signs [RC] PRN VTE/DVT Education [RC] Click to Edit 07/25/20 05:00 Oxytocin/Normal Saline [Pitocin in NS 20 Units/1,000 ML] 20 unit in 1,000 ml IV ASDIRECTED 07/25/20 Breakfast Regular Diet [DIET] - Assessment Assessment:: 07/25/20 25 yo with EBL 100 ml No complications Perineum intact - Plan Plan:: 07/25/20 Assessment: 25 yo here in active labor SVE last was 6-7 cm Plans no pain medication Anti E antibody, O negative blood type Uncomplicated Plan: Anticipate Type and screen 07/25/20 support Routine cares Anticipate 24-48 hour stay
[2020-07-25] MEDS ORDERED: Docusate Sodium 100 MG Cap PO PRN (05:50)
[2020-07-25] MEDS ORDERED: Benzocaine 20% Top Spray 56 GM Bottle TOP PRN (05:50)
[2020-07-25] MEDS ORDERED: Lanolin 100% Cream 40 GM Tube TOP PRN (05:50)
[2020-07-25] MEDS ORDERED: Acetaminophen 325 MG Tab, 50 Tab Bulk Bottle PO PRN (06:05)
[2020-07-25] MEDS ORDERED: Ibuprofen 200 MG Tab, 24 Tab Bulk Bottle PO PRN (06:05)
--- NOTE | 2020-07-26 07:58 | PCM.PNPP ---
- General Info Date of Service: 07/26/20 Functional Status: Reports: Pain Controlled - Review of Systems General: Reports: No Symptoms HEENT: Reports: No Symptoms Pulmonary: Reports: No Symptoms Cardiovascular: Reports: No Symptoms Gastrointestinal: Reports: No Symptoms Genitourinary: Reports: No Symptoms Musculoskeletal: Reports: No Symptoms Skin: Reports: No Symptoms Neurological: Reports: No Symptoms Psychiatric: Reports: No Symptoms - General Info Date of Service: 07/26/20 - Patient Data Vital Signs - Most Recent: Last Vital Signs Temp 36.0 C L 07/26/20 04:13 Pulse 88 07/26/20 04:13 Resp 18 07/26/20 04:13 BP 115/69 07/26/20 04:13 Pulse Ox 99 07/26/20 04:13 I&O - Last 24 Hours: Intake & Output 07/25/20 07/26/20 07/26/20 22:59 06:59 14:59 Intake Total 500 Balance 500 Lab Results - Last 24 Hours: Laboratory Results - last 24 hr 07/25/20 07/26/20 Range/Units 06:26 04:00 WBC 13.4 H (4.5-11.0) K/uL RBC 3.93 (3.30-5.50) M/uL Hgb 11.1 L (12.0-15.0) g/dL Hct 34.6 L (36.0-48.0) % MCV 88 (80-98) fL MCH 28 (27-31) pg MCHC 32 (32-36) % Plt Count 193 (150-400) K/uL Neut % (Auto) 65 (36-66) % Lymph % (Auto) 22 L (24-44) % [place] % (Auto) 7 H (2-6) % Eos % (Auto) 6 H (2-4) % Baso % (Auto) 0 (0-1) % Screen Negative Med Orders - Current: Current Medications Acetaminophen (Tylenol Bulk Bottle) 0 mg PO Q4H PRN PRN Reason: Pain Last Admin: 07/25/20 06:26 Dose: 1 bottle Documented by: Benzocaine ([id number]-I-Ddodihq 20% [place]) 0 gm TOP Q4H PRN PRN Reason: Perineal Comfort Measure Last Admin: 07/25/20 06:25 Dose: 1 spray Documented by: Docusate Sodium (Colace) 100 mg PO BID PRN PRN Reason: Constipation Emollient Ointment (Lansinoh Hpa) 1 gm TOP ASDIRECTED PRN PRN Reason: Sore Nipples Last Admin: 07/25/20 06:26 Dose: 1 applic Documented by: Ibuprofen (Motrin Bulk Bottle) 600 mg PO Q6H PRN PRN Reason: Pain Last Admin: 07/25/20 06:26 Dose: 1 bottle Documented by: Sodium Chloride (Saline Flush) 10 ml FLUSH ASDIRECTED PRN PRN Reason: Keep Vein Open Discontinued Medications Oxytocin/Sodium Chloride (Pitocin In Ns 20 Units/1,000 Ml) Confirm Administered Dose 20 unit in 1,000 mls @ as directed .ROUTE .STK-MED ONE Stop: 07/25/20 04:22 Last Admin: 07/25/20 05:49 Dose: Not Given Documented by: Oxytocin/Sodium Chloride (Pitocin In Ns 20 Units/1,000 Ml) 20 unit in 1,000 mls @ 2,997 mls/hr IV ASDIRECTED JENNIFER; Protocol Last Titration: 07/25/20 05:49 Dose: 41.67 munits/min, 125 mls/hr Documented by: Methylergonovine Maleate (Methergine) 0.2 mg IM ONETIME ONE Stop: 07/25/20 04:55 Last Admin: 07/25/20 06:23 Dose: Not Given Documented by: Misoprostol (Cytotec) 800 mcg RECTAL ONETIME ONE Stop: 07/25/20 04:55 Last Admin: 07/25/20 06:23 Dose: Not Given Documented by: - Interaction Infant Disposition, : in Room with Family Infant Interaction: Holding Feeding: Breastfed ; Nursed Well Support Person: - Recovery Exam Fundal Tone: Firm Fundal Level: 1 Fingerbreadths Below Umbilicus Fundal Placement: Midline Lochia Amount: Small Lochia Color: Rubra/Red Perineum Description: Intact, Minimal Bruising/Swelling Episiotomy/Laceration: None Bladder Status: Voiding - Exam General: Alert, Oriented HEENT: Pupils Equal Neck: Supple Lungs: Clear to Auscultation, Normal Respiratory Effort Cardiovascular: Regular Rate, Regular Rhythm GI/Abdominal Exam: Normal Bowel Sounds, Soft, Non-Tender, No Organomegaly, No Distention, No Abnormal Bruit, No Mass, Pelvis Stable Extremities: Normal Inspection, Normal Range of Motion, Non-Tender, No Pedal Edema, Normal Capillary Refill Skin: Warm, Dry, Intact Neurological: No New Focal Deficit Psy/Mental Status: Alert, Normal Affect, Normal Mood - Problem List & Annotations (1) () SNOMED Code(s): 278960181 Code(s): Z78.9 - OTHER SPECIFIED HEALTH STATUS Status: Acute Current Visit: Yes (2) Normal vaginal delivery SNOMED Code(s): 76723201, 177784612 Code(s): O80 - ENCOUNTER FOR FULL-TERM UNCOMPLICATED DELIVERY Status: Acute Current Visit: Yes - Problem List Review Problem List Initiated/Reviewed/Updated: Yes - Assessment Assessment:: 07/25/20 25 yo with EBL 100 ml No complications Perineum intact 07/26/2020 day one Fundus firm and bleeding decreasing well Voiding and passing gas Desires discharge home today - Plan Plan:: 07/25/20 Assessment: 25 yo here in active labor SVE last was 6-7 cm Plans no pain medication Anti E antibody, O negative blood type Uncomplicated Plan: Anticipate Type and screen 07/25/20 support Routine cares Anticipate 24-48 hour stay 07/26/2020 Continue routine cares Continue to support and encourage Discharge home today To see me in clinic in six weeks for a visit
[2020-07-26 08:16] VITALS: BP 129/71; PULSE 82
== END 2020-07-26 09:30 | disposition home or self-care (01) | DRG 807 ==
LOC: JP.OBCHECK 04:11 → JP.OB 04:54 → OBSVTOIN 05:16 → JP.MS 08:00
PROVIDERS: ADMIT Advanced Practice Midwife; ATTEND Advanced Practice Midwife
PROC: 10E0XZZ Delivery of Products of Conception, External Approach (ICD-10-PCS; principal; 2020-07-25)
PROC: 3E0234Z Introduction of Serum, Toxoid and Vaccine into Muscle, Percutaneous Approach (ICD-10-PCS; 2020-07-25)
DX: O26.893 Other specified pregnancy related conditions, third trimester (principal); Z37.0 Single live birth; Z67.41 Type O blood, Rh negative; Z3A.40 40 weeks gestation of pregnancy
CPT/HCPCS: 36415; 59409; 81001; 85025; 85460; 86850; 86900; 86901; 99211; A9270-GY; J2590; J2790